=== PATIENT | male | born 1955 | race Two or more races ===

== ENCOUNTER 2023-06-20 09:04 | Inpatient (IN) | payer OTHER ==
[~2023-06-20] VITALS: Ht 180.3 cm; Wt 90.7 kg
[2023-06-20] MEDS ORDERED: NORVASC10 MG PO (09:29)
[2023-06-20] MEDS ORDERED: METOPROLOL SUC100 MG PO (09:30)
[2023-06-20] MEDS ORDERED: SYNTHROID150 MCG PO (09:30)
[2023-06-20] MEDS ORDERED: BENICAR HCT 401 EACH PO (09:30)
[2023-06-20] MEDS ORDERED: CRESTOR5 MG PO (09:30)
[2023-06-20] MEDS ORDERED: PAROXETINE HCL10 MG PO (09:31)
[2023-06-20 11:29] LABS: HEMATOCRIT 44.7 % (39.0-48.0); HEMOGLOBIN 15.2 g/dL (13-16.00); MEAN CELL VOLUME 85.5 fL (80.0-100.00); MEAN CORPUSCULAR HEMOGLOBIN 29.2 pg (27.00-32.0); MEAN CORPUSCULAR HGB CONC 34.1 g/dl (32.0-36.0); RED BLOOD COUNT 5.22 M/uL (4.00-6.00); RED CELL DISTRIBUTION WIDTH 14.4 % (11.5-14.5)
[2023-06-20 12:43] LABS: PLATELET COUNT 48 K/uL (150-450)
[2023-06-20 14:37] LABS: ALBUMIN 3.6 gm/dL (3.4-5.0); BILIRUBIN TOTAL 0.4 mg/dL (0.3-1.2); BILIRUBIN,CONJUGATED 0.13 mg/dL (0.0-0.2); BILIRUBIN,UNCONJUGATED 0.27 mg/dL (0.0-0.6); CREATININE SERUM 1.62 mg/dL (0.70-1.30); GFR 42.58; TOTAL PROTEIN 7.4 gm/dL (6.4-8.2)
[2023-06-20 14:51] LABS: POTASSIUM 2.82 mEq/L (3.5-5.1)
[2023-06-20 21:26] LABS: LDH 541 U/L (87-241); PHOSPHOKINASE CREATININE 208 U/L (39-308)
[2023-06-21 08:43] LABS: LDH 488 U/L (87-241); PHOSPHOKINASE CREATININE 214 U/L (39-308)
[2023-06-21 08:46] LABS: ALBUMIN 3.3 gm/dL (3.4-5.0); BILIRUBIN TOTAL 0.36 mg/dL (0.3-1.2); BILIRUBIN,CONJUGATED 0.12 mg/dL (0.0-0.2); BILIRUBIN,UNCONJUGATED 0.24 mg/dL (0.0-0.6); CALCIUM 8.5 mg/dL (8.5-10.1); CHOL HDL RATIO 3.2 (0-5.0); CREATININE SERUM 1.03 mg/dL (0.70-1.30); GFR 71.81; GLOBULINA 3.6 G/DL (2.4-3.5); POTASSIUM 3.11 mEq/L (3.5-5.1); TOTAL PROTEIN 6.9 gm/dL (6.4-8.2)
[2023-06-21 09:25] LABS: C-REACTIVE PROTEIN 0.71 MG/DL (0.00-0.29)
[2023-06-21 09:35] LABS: INR 0.98; PARTIAL THROMBOPLASTIN TIME 37.7 SECONDS (22.0-34.0); PROTHROMBIN TIME 10.3 SECONDS (9.0-11.5)
[2023-06-21 10:05] LABS: HEMATOCRIT 41.7 % (39.0-48.0); HEMOGLOBIN 14.2 g/dL (13-16.00); MEAN CELL VOLUME 84.7 fL (80.0-100.00); MEAN CORPUSCULAR HEMOGLOBIN 28.9 pg (27.00-32.0); MEAN CORPUSCULAR HGB CONC 34.1 g/dl (32.0-36.0); RED BLOOD COUNT 4.93 M/uL (4.00-6.00); RED CELL DISTRIBUTION WIDTH 14.5 % (11.5-14.5)
[2023-06-21 10:23] LABS: PLATELET COUNT 35 K/uL (150-450)
[2023-06-21 11:05] LABS: ERYTHROCYTE SEDIMENTATION RATE 16 mm/hr
[2023-06-21 15:54] LABS: LDH 402 U/L (87-241); PHOSPHOKINASE CREATININE 194 U/L (39-308)
[2023-06-21 21:30] LABS: PH,URINE 6.5 (5.0-8.0); URINE APPEARANCE Clear; URINE BILIRRUBIN Negative (NEGATIVE); URINE BLOOD Moderate; URINE COLOR Yellow; URINE LEUKOCYTE Negative; URINE NITRATE Negative
[2023-06-21 21:36] LABS: URINE EPITHELIAL CELLS 3.8 uL (0.0-38.8); URINE RBC 3.7 uL (0.0-20.8); URINE WBC 2.1 uL (0.0-23.2)
[2023-06-21 22:07] LABS: URINE BACTERIA 1.2 uL (0.0-1933); URINE GLUCOSE 250 MG/DL (NEGATIVE); URINE PROTEIN 100 (NEGATIVE)
[2023-06-22 07:38] LABS: HEMATOCRIT 39.6 % (39.0-48.0); HEMOGLOBIN 13.3 g/dL (13-16.00); MEAN CELL VOLUME 86.4 fL (80.0-100.00); MEAN CORPUSCULAR HGB CONC 33.6 g/dl (32.0-36.0); RED BLOOD COUNT 4.58 M/uL (4.00-6.00); RED CELL DISTRIBUTION WIDTH 14.4 % (11.5-14.5)
[2023-06-22 07:42] LABS: BILIRUBIN TOTAL 0.39 mg/dL (0.3-1.2); CALCIUM 8.4 mg/dL (8.5-10.1); CREATININE SERUM 0.86 mg/dL (0.70-1.30); GFR 88.43; GLOBULINA 3.3 G/DL (2.4-3.5); POTASSIUM 3.59 mEq/L (3.5-5.1); TOTAL PROTEIN 6.3 gm/dL (6.4-8.2)
[2023-06-22 08:46] LABS: PLATELET COUNT 73 K/uL (150-450)
== END 2023-06-23 19:04 | disposition home or self-care (01) | DRG 866 ==
LOC: ER 09:05 → MEDJ 20:02 → SEC-K 20:16 → MEDJ 20:17
PROVIDERS: General Practice; Internal Medicine; ADMIT Internal Medicine; ATTEND Internal Medicine
DX: A90 Dengue fever [classical dengue] (principal); D69.6 Thrombocytopenia, unspecified; B34.9 Viral infection, unspecified; R74.01 Elevation of levels of liver transaminase levels; I10 Essential (primary) hypertension; E03.9 Hypothyroidism, unspecified

== ENCOUNTER 2024-12-29 10:15 | Inpatient (IN) | payer OTHER ==
[~2024-12-29] VITALS: Ht 30.5 cm; Wt 93.0 kg
[~2024-12-29 10:15] MED LIST: BENICAR HCT 401 EACH PO; CRESTOR5 MG PO; METOPROLOL SUC100 MG PO; NORVASC10 MG PO; PAROXETINE HCL10 MG PO; SYNTHROID150 MCG PO
[2025-01-04] MEDS ORDERED: METRONIDAZOLE/SODIUM CHLORIDE 500 MG/100 ML PIGGYBACK IV ONE (07:30)
[2025-01-04] MEDS ORDERED: CEFTRIAXONE SODIUM 2,000 MG VIAL IV ONE (07:30)
[2025-01-04] MEDS ORDERED: SUGAMMADEX SODIUM 200 MG/2 ML VIAL IV ONE (11:00)
[2025-01-04] MEDS ORDERED: RINGERS SOLUTION,LACTATED 1,000 ML IV SCH (11:00)
[2025-01-04] MEDS ORDERED: OxyCODONE HCL 5 MG TABLET (ROXICODONE) PO PRN (11:00)
[2025-01-04] MEDS ORDERED: MORPHINE SULFATE 4 MG/ML CARTRIDGE IV PRN (11:00)
[2025-01-04] MEDS ORDERED: ONDANSETRON HCL 2 MG/ML VIAL IV PRN (11:00)
[2025-01-04] MEDS ORDERED: MORPHINE SULFATE 4 MG/ML VIAL IV ONE ×2 (11:15→11:45)
[2025-01-04] MEDS ORDERED: SIMETHICONE 125 MG CAPSULE PO SCH (13:00)
[2025-01-04] MEDS ORDERED: HYOSCYAMINE SULFATE 0.125 MG TAB.SUBL SL SCH (13:00)
[2025-01-04] MEDS ORDERED: ACETAMINOPHEN 500 MG GEL..CAP PO SCH (14:00)
[2025-01-04 15:23] LABS: BASO % 0.1 % (0.1-1.2); EOS # 0.00 (0.04-0.54); EOS % 0.0 % (0.7-7.0); LYMPH # 0.52 (1.18-3.74); LYMPH % 3.5 % (19.3-53.1); MEAN PLATELET VOLUME 10.50 fl (9.4-12.4); MONO # 0.84 (0.24-0.82); MONO % 5.7 % (4.7-12.5); NEUT # 13.24 (1.56-6.13); NEUT % 90.4 % (34.0-71.1); RED CELL DISTRIBUTION WIDTH 13.1 % (11.6-14.4)
[2025-01-04 16:00] VITALS: BP 145/66; O2SAT 94
[2025-01-04] MEDS ORDERED: INSULIN LISPRO 1,000 UNIT/10 ML UNITS SUBCUTANEO PRN (16:00)
[2025-01-04] MEDS ORDERED: ENALAPRILAT DIHYDRATE 1.25 MG/ML VIAL IV PRN (16:00)
[2025-01-04] MEDS ORDERED: DEXTROSE 50 % IN WATER 0.5 G/ML VIAL IV PRN (16:00)
[2025-01-04] MEDS ORDERED: ROSUVASTATIN CALCIUM 10 MG TABLET PO SCH (17:00)
[2025-01-04] MEDS ORDERED: METOCLOPRAMIDE HCL 5 MG/ML VIAL IV SCH (17:00)
[2025-01-04] MEDS ORDERED: GABAPENTIN 300 MG CAPSULE PO SCH (17:00)
[2025-01-04] MEDS ORDERED: CELECOXIB 200 MG CAPSULE PO SCH (17:00)
[2025-01-04] MEDS ORDERED: LEVALBUTEROL HCL 0.63 MG/3 ML SOLUTION IH SCH (18:00)
[2025-01-04] MEDS ORDERED: AMLODIPINE BESYLATE 10 MG TABLET PO SCH (21:00)
[2025-01-04] MEDS ORDERED: PATIENTS OWN MEDICATION (MEDICAMENTO EN PISO) PO SCH (21:00)
[2025-01-04] MEDS ORDERED: METOPROLOL SUCCINATE 100 MG TAB.SR.24H PO SCH (21:00)
[2025-01-04] MEDS ORDERED: FAMOTIDINE/PF 20 MG/2 ML VIAL IV PUSH SCH (21:00)
[2025-01-05 01:46] VITALS: BP 125/65; O2SAT 100
[2025-01-05] MEDS ORDERED: PATIENTS OWN MEDICATION (MEDICAMENTO EN PISO) PO SCH (06:00)
[2025-01-05 06:42] LABS: BASO % 0.3 % (0.1-1.2); EOS # 0.01 (0.04-0.54); EOS % 0.1 % (0.7-7.0); LYMPH # 1.00 (1.18-3.74); LYMPH % 10.4 % (19.3-53.1); MEAN PLATELET VOLUME 10.40 fl (9.4-12.4); MONO # 0.98 (0.24-0.82); MONO % 10.1 % (4.7-12.5); NEUT # 7.61 (1.56-6.13); NEUT % 78.8 % (34.0-71.1); RED CELL DISTRIBUTION WIDTH 13.2 % (11.6-14.4)
[2025-01-05 07:16] LABS: BUN CREA RATIO 9.0 (7.0-25.0); CREATININE SERUM 0.75 mg/dL (0.70-1.30); GFR 103.26; GLUCOSE FASTING 106.0 mg/dL (65-100); OSMOLALITY SERUM 285.0 MOSM/KG (275-295)
[2025-01-05 08:16] VITALS: BP 137/64; O2SAT 95
[2025-01-05] MEDS ORDERED: LACTOBACILLUS ACIDOPHILUS 1 CAP CAP PO SCH (09:00)
[2025-01-05] MEDS ORDERED: LACTULOSE 20 G/30 ML BLIST.PACK PO SCH (09:00)
[2025-01-05] MEDS ORDERED: LISINOPRIL 2.5 MG TABLET PO SCH ×2 (09:00)
[2025-01-05] MEDS ORDERED: PAROXETINE HCL 10 MG TABLET PO SCH (09:00)
[2025-01-05] MEDS ORDERED: POTASSIUM CHLORIDE 20MEQ/100ML H2O PB IV NR (11:45)
[2025-01-05] MEDS ORDERED: ENOXAPARIN SODIUM 40 MG/0.4 ML SYRINGE SUBCUTANEO SCH (17:00)
[2025-01-05 17:37] VITALS: BP 128/71; O2SAT 92
[2025-01-05] MEDS ORDERED: POTASSIUM PHOS,M-BASIC-D-BASIC 3 MM/ML VIAL IV NR (18:00)
[2025-01-06 01:04] VITALS: BP 126/77; O2SAT 99
[2025-01-06 06:14] LABS: BASO % 0.5 % (0.1-1.2); EOS # 0.04 (0.04-0.54); EOS % 0.5 % (0.7-7.0); LYMPH # 1.14 (1.18-3.74); LYMPH % 13.0 % (19.3-53.1); MEAN PLATELET VOLUME 10.50 fl (9.4-12.4); MONO # 0.75 (0.24-0.82); MONO % 8.5 % (4.7-12.5); NEUT # 6.79 (1.56-6.13); NEUT % 77.2 % (34.0-71.1); RED CELL DISTRIBUTION WIDTH 13.3 % (11.6-14.4)
[2025-01-06 07:01] LABS: BUN CREA RATIO 9.0 (7.0-25.0); CREATININE SERUM 0.8 mg/dL (0.70-1.30); GFR 95.85; GLUCOSE FASTING 103.0 mg/dL (65-100); OSMOLALITY SERUM 289.0 MOSM/KG (275-295)
[2025-01-06 08:23] VITALS: BP 134/74; O2SAT 95
[2025-01-06] MEDS ORDERED: ENOXAPARIN SODIUM 40 MG/0.4 ML SYRINGE SUBCUTANEO SCH (09:00)
[2025-01-06] MEDS ORDERED: POTASSIUM CHLORIDE 20MEQ/100ML H2O PB IV NR (10:30)
[2025-01-06] MEDS ORDERED: POTASSIUM CHLORIDE 8 MEQ TABLET PO NR (12:00)
[2025-01-06] MEDS ORDERED: NAPH,MB-DB/K PH,MBDB 1 PKT PACKET PO NR (12:00)
[2025-01-06] MEDS ORDERED: POTASSIUM PHOS,M-BASIC-D-BASIC 3 MM/ML VIAL IV NR (17:00)
== END 2025-01-06 13:50 | disposition home health service (06) | DRG 331 ==
LOC: SURH 01-04 07:00 → SURG 01-04 10:41 → O/R 01-04 10:41 → SURG 01-04 13:23 → O/R 01-05 10:22 → SURG 01-05 10:23
PROVIDERS: Internal Medicine Geriatric Medicine; ADMIT Colon & Rectal Surgery; ATTEND Colon & Rectal Surgery
PROC: 07BB4ZZ Excision of Mesenteric Lymphatic, Percutaneous Endoscopic Approach (ICD-10-PCS; 2025-01-04)
PROC: 07BC4ZZ Excision of Pelvis Lymphatic, Percutaneous Endoscopic Approach (ICD-10-PCS; 2025-01-04)
PROC: 8E0W4CZ Robotic Assisted Procedure of Trunk Region, Percutaneous Endoscopic Approach (ICD-10-PCS; 2025-01-04)
PROC: 3E0F7GC Introduction of Other Therapeutic Substance into Respiratory Tract, Via Natural or Artificial Opening (ICD-10-PCS; 2025-01-04)
PROC: 0DTF4ZZ Resection of Right Large Intestine, Percutaneous Endoscopic Approach (ICD-10-PCS; principal; 2025-01-04 07:00)
DX: D12.0 Benign neoplasm of cecum (principal); D12.2 Benign neoplasm of ascending colon; D12.3 Benign neoplasm of transverse colon; R59.0 Localized enlarged lymph nodes; Z86.0100 Personal history of colon polyps, unspecified; E87.6 Hypokalemia; E83.39 Other disorders of phosphorus metabolism; I10 Essential (primary) hypertension; J45.909 Unspecified asthma, uncomplicated; E10.9 Type 1 diabetes mellitus without complications; E03.9 Hypothyroidism, unspecified; E78.5 Hyperlipidemia, unspecified; F41.8 Other specified anxiety disorders
CPT/HCPCS: 44204; 38570; 38571; 94640; S2900